=== PATIENT | female | born 1935 | race African-American/Black ===

== ENCOUNTER 2021-03-29 13:03 | Inpatient (IN) ==
[2021-03-29] MEDS ORDERED: SODIUM CHLORIDE 0.9% 500 ML IV STA (14:36)
[2021-03-29 16:00] LABS: Basophils % 0.2 % (0.0-0.8); Hematocrit 27.8 VOL% (35.7-47.0); Hemoglobin 9.5 GM/DL (12.0-16.0); Immature Granulocytes % 2.7 %; Immature Granulocytes Absolute 0.57 #; Lymphocytes % 4.6 % (21.3-54.2); Mean Corpuscular HGB Conc 34.2 GM/DL (32-36); Mean Corpuscular Volume 66.5 FL (87-102); Mean Platelet Volume 11.8 FL (9.6-12.0); Monocytes % 8.5 % (1.7-12.7); Platelet Count 212 T/CUMM (130-400); Red Blood Count 4.18 MC/CUMM (3.8-5.5); Red Cell Distribution Width 15.2 % (9.3-17.3)
[2021-03-29 16:20] LABS: Bilirubin,Total 0.8 MG/DL (0.20-1.00); Calcium 8.7 MG/DL (8.5-10.1); Osmolality,Calculated 318.7 MOS/KG (273-304); Potassium 5.1 MMOL/L (3.5-5.1); Total Protein 5.7 G/DL (6.4-8.2)
[2021-03-29] MEDS ORDERED: SODIUM CHLORIDE 0.9% 1,000 ML IV STA (16:24)
[2021-03-29] MEDS ORDERED: ASPIRIN CHEW 81 MG TABLET PO STA (16:24)
[2021-03-29] MEDS ORDERED: INSULIN REGULAR 100 UNIT/ML IV STA (16:25)
[2021-03-29 16:45] LABS: Burr Cells 1+; Lymphocytes 4 % (20-55); Metamyelocytes 1 %; Nucleated Red Blood Cells 1 (0-5); Schistocytes Slight; Segmented Neutrophils 87 % (50-85); Target Cells Few; Total Cells Counted 100
[2021-03-29 16:46] LABS: Anisocytosis Slight; Ovalocytes Slight; Platelet Estimate Normal
[2021-03-29 16:56] LABS: ABG Base Excess -7.3 MMOL/L (-2.5-2.5); ABG HCO3 15.6 MMOL/L (20-26); ABG Oxygen Saturation 94.1 % (95-100); ABG PCO2 23.2 MM HG (35-48); ABG PH 7.446 (7.35-7.45); ABG PO2 68.1 MM HG (80-95); ABG TCO2 16.3 MMOL/L (23-27)
[2021-03-29 17:53] LABS: Bacteria,Urine Occasional /HPF (Few); Bilirubin,Urine Negative (Negative); Blood, Urine Small mg/dL (Negative); Glucose,Urine (UA) >=500 mg/dL (Negative); Ketones,Urine Negative (Negative); Mucus,Urine Occasional /LPF (Occasional); Nitrite,Urine Negative (Negative); Protein,Urine 30 MG/DL; RBC,Urine 2 /HPF (0-4); Squamous Epithelial Cell,Urine Occasional /HPF (0-10); Urine Appearance CLEAR (Clear); Urine Color Yellow (Yellow); Urine Specific Gravity 1.017 (1.001-1.035); Urine Urobilinogen < 2.0 EU/DL (<2.0)
[2021-03-29] MEDS ORDERED: DOCUSATE SODIUM 100 MG CAPSULE PO PRN (19:05)
[2021-03-29] MEDS ORDERED: GLUCAGON 1 MG VIAL IM PRN (19:05)
[2021-03-29] MEDS ORDERED: MORPHINE 2 MG/1 ML SYRINGE IV PRN (19:05)
[2021-03-29] MEDS ORDERED: ONDANSETRON 4 MG/2 ML VIAL IV PRN (19:05)
[2021-03-29] MEDS ORDERED: hydrALAZINE 20 MG/1 ML VIAL IV PRN (19:05)
[2021-03-29] MEDS ORDERED: DEXTROSE 10% 25 GM/250 ML BAG IV PRN (19:11)
[2021-03-29 19:39] LABS: Thyroid Stimulating Hormone 5.07 uIU/ml (0.358-3.74)
[2021-03-29] MEDS: PIPERACILLIN/TAZOBACTAM 3,375 MG in SODIUM CHLORIDE 0.9% 100 ML IV SCH (20:25)
[2021-03-29] MEDS: SODIUM CHLORIDE 0.9% 1,000 ML IV SCH (20:25)
[2021-03-29] MEDS: ATORVASTATIN 40 MG TABLET PO SCH (21:30)
[2021-03-29] MEDS: ENOXAPARIN 30 MG/0.3 ML SYRINGE SUBCUT SCH (21:30)
[2021-03-29] MEDS: hydrALAZINE 25 MG TABLET PO SCH (21:30)
[2021-03-29] MEDS: carvediloL 3.125 MG TABLET PO SCH (21:30)
[2021-03-29] MEDS: INSULIN REGULAR 100 UNIT/ML SUBCUT SCH (21:30)
[2021-03-30] MEDS: ALBUTEROL 2.5 MG/3 ML NEB RESP TX SCH ×4 (00:50→19:35)
[2021-03-30 04:29] LABS: Alanine Aminotransferase 27 U/L (13-56); Albumin 1.8 G/DL (3.4-5.0); Alkaline Phosphatase 95 U/L (45-117); Aspartate Amino Transferase 36 U/L (0-37); Blood Urea Nitrogen 65 MG/DL (7-18); Calcium 8.7 MG/DL (8.5-10.1); Carbon Dioxide 17 MMOL/L (21-32); Estimated Glom Filtration Rate 32 ML/MIN; Glucose 186 MG/DL (74-106); HDL Cholesterol < 10 MG/DL (40-60); Osmolality,Calculated 311.7 MOS/KG (273-304); Potassium 4.6 MMOL/L (3.5-5.1); Sodium 145 MMOL/L (136-145); Total Protein 6.2 G/DL (6.4-8.2); Triglycerides 182 MG/DL (2-150); VLDL Cholesterol 36.4 MG/DL
[2021-03-30] MEDS: PIPERACILLIN/TAZOBACTAM 3,375 MG in SODIUM CHLORIDE 0.9% 100 ML IV SCH ×3 (04:33→21:24)
[2021-03-30] MEDS: SODIUM CHLORIDE 0.9% 1,000 ML IV SCH ×2 (04:33→12:45)
[2021-03-30 04:40] LABS: Basophils # 0.1 10*3/uL (0.0-0.2); Basophils % 0.3 % (0.0-0.8); Eosinophils % 0.1 % (0.00-10.9); Hematocrit 28.1 VOL% (35.7-47.0); Hemoglobin 9.6 GM/DL (12.0-16.0); Immature Granulocytes % 3.1 %; Lymphocytes # 0.9 10*3/uL (1.4-4.0); Mean Corpuscular HGB Conc 34.2 GM/DL (32-36); Mean Corpuscular Volume 65.8 FL (87-102); Monocytes % 6.8 % (1.7-12.7); NRBC # 0.03 10*3/uL; Neutrophils % 85.7 % (38.7-73.9); Platelet Count 207 T/CUMM (130-400); Red Blood Count 4.27 MC/CUMM (3.8-5.5); Red Cell Distribution Width 15.6 % (9.3-17.3); White Blood Count 22.3 T/CUMM (4-12)
[2021-03-30 05:13] LABS: Lymphocytes 3 % (20-55); Platelet Estimate Normal; Segmented Neutrophils 93 % (50-85); Total Cells Counted 100
[2021-03-30 05:14] LABS: Hypochromia Slight; Microcytosis 1+
[2021-03-30] MEDS: INSULIN REGULAR 100 UNIT/ML SUBCUT SCH ×4 (08:37→21:23)
[2021-03-30] MEDS: carvediloL 3.125 MG TABLET PO SCH ×2 (09:39→21:22)
[2021-03-30] MEDS: hydrALAZINE 25 MG TABLET PO SCH ×2 (09:39→21:22)
[2021-03-30] MEDS: ASPIRIN EC 81 MG TABLET PO SCH (09:39)
[2021-03-30] MEDS: FERROUS SULFATE 325 MG TABLET PO SCH (09:39)
[2021-03-30] MEDS: PANTOPRAZOLE 40 MG TABLET PO SCH (09:40)
[2021-03-30 11:09] LABS: CKMB % 9.4 %
[2021-03-30 11:10] LABS: High Sensitive Troponin I* 3887.5 ng/L (0-54)
[2021-03-30] MEDS: SODIUM BICARBONATE 650 MG TABLET PO SCH ×2 (12:56→21:22)
[2021-03-30] MEDS: ATORVASTATIN 40 MG TABLET PO SCH (21:22)
[2021-03-30] MEDS: ENOXAPARIN 30 MG/0.3 ML SYRINGE SUBCUT SCH (21:23)
[2021-03-31] MEDS: ALBUTEROL 2.5 MG/3 ML NEB RESP TX SCH ×4 (00:35→20:45)
[2021-03-31 04:48] LABS: Basophils # 0.1 10*3/uL (0.0-0.2); Basophils % 0.2 % (0.0-0.8); Eosinophils % 0.1 % (0.00-10.9); Hematocrit 23.8 VOL% (35.7-47.0); Hemoglobin 8.1 GM/DL (12.0-16.0); Immature Granulocytes % 4.1 %; Immature Granulocytes Absolute 0.97 #; Lymphocytes # 1.8 10*3/uL (1.4-4.0); Lymphocytes % 7.7 % (21.3-54.2); Mean Corpuscular Volume 66.1 FL (87-102); Mean Platelet Volume 12.2 FL (9.6-12.0); Monocytes % 6.9 % (1.7-12.7); NRBC # 0.03 10*3/uL; Platelet Count 237 T/CUMM (130-400); Red Cell Distribution Width 15.5 % (9.3-17.3); White Blood Count 23.9 T/CUMM (4-12)
[2021-03-31 05:17] LABS: CKMB % 3.5 %; High Sensitive Troponin I* 3139.5 ng/L (0-54)
[2021-03-31 05:21] LABS: Calcium 8.4 MG/DL (8.5-10.1); Osmolality,Calculated 303.3 MOS/KG (273-304); Potassium 5.9 MMOL/L (3.5-5.1)
[2021-03-31 05:47] LABS: Hypochromia 2+; Microcytosis 1+; Platelet Estimate Normal; Target Cells 1+
[2021-03-31] MEDS: PIPERACILLIN/TAZOBACTAM 3,375 MG in SODIUM CHLORIDE 0.9% 100 ML IV SCH ×3 (06:23→22:15)
[2021-03-31] MEDS: SODIUM CHLORIDE 0.9% 1,000 ML IV SCH (07:16)
[2021-03-31] MEDS: ASPIRIN EC 81 MG TABLET PO SCH (09:31)
[2021-03-31] MEDS: hydrALAZINE 25 MG TABLET PO SCH ×2 (09:31→22:15)
[2021-03-31] MEDS: INSULIN REGULAR 100 UNIT/ML SUBCUT SCH ×4 (09:31→22:16)
[2021-03-31] MEDS: PANTOPRAZOLE 40 MG TABLET PO SCH (09:31)
[2021-03-31] MEDS: SODIUM BICARBONATE 650 MG TABLET PO SCH ×2 (09:31→22:14)
[2021-03-31] MEDS: FERROUS SULFATE 325 MG TABLET PO SCH (09:31)
[2021-03-31] MEDS: carvediloL 3.125 MG TABLET PO SCH ×2 (09:31→22:14)
[2021-03-31] MEDS: SODIUM ZIRCONIUM CYCLOSILICATE 10 GM PACK PO SCH ×2 (09:31→15:48)
[2021-03-31] MEDS ORDERED: LEVOFLOXACIN INJ 500 MG/100 ML PREMIX IV ONE (15:00)
[2021-03-31] MEDS: ATORVASTATIN 40 MG TABLET PO SCH (22:14)
[2021-03-31] MEDS: ACETAMINOPHEN 325 MG TABLET PO PRN (22:14)
[2021-03-31] MEDS: ENOXAPARIN 30 MG/0.3 ML SYRINGE SUBCUT SCH (22:15)
[2021-03-31] MEDS: HYDROCORTISONE 25 MG SUPP RECTAL SCH (22:15)
[2021-03-31] MEDS: DOCUSATE SODIUM 100 MG CAPSULE PO SCH (22:15)
[2021-03-31] MEDS: POLYETHYLENE GLYCOL POWDER 17 GM PACK PO SCH (22:17)
[2021-04-01] MEDS: ALBUTEROL 2.5 MG/3 ML NEB RESP TX SCH ×4 (00:39→20:15)
[2021-04-01 04:57] LABS: Basophils # 0.1 10*3/uL (0.0-0.2); Basophils % 0.2 % (0.0-0.8); Eosinophils # 0.1 10*3/uL (0.0-0.87); Eosinophils % 0.3 % (0.00-10.9); Hematocrit 21.7 VOL% (35.7-47.0); Hemoglobin 7.3 GM/DL (12.0-16.0); Immature Granulocytes Absolute 1.09 #; Lymphocytes # 2.1 10*3/uL (1.4-4.0); Lymphocytes % 9.8 % (21.3-54.2); Mean Corpuscular HGB Conc 33.6 GM/DL (32-36); Mean Corpuscular Volume 66.6 FL (87-102); Mean Platelet Volume 12.2 FL (9.6-12.0); NRBC # 0.04 10*3/uL; Neutrophils % 77.7 % (38.7-73.9); Platelet Count 250 T/CUMM (130-400); Red Blood Count 3.26 MC/CUMM (3.8-5.5); Red Cell Distribution Width 15.1 % (9.3-17.3); White Blood Count 21.6 T/CUMM (4-12)
[2021-04-01] MEDS: PIPERACILLIN/TAZOBACTAM 3,375 MG in SODIUM CHLORIDE 0.9% 100 ML IV SCH ×3 (05:03→21:29)
[2021-04-01 05:13] LABS: Calcium 8.2 MG/DL (8.5-10.1); Osmolality,Calculated 305.8 MOS/KG (273-304); Potassium 3.4 MMOL/L (3.5-5.1)
[2021-04-01 05:26] LABS: Hypochromia 2+
[2021-04-01 05:27] LABS: Microcytosis 1+; Target Cells 1+
[2021-04-01 05:28] LABS: Ovalocytes Few; Platelet Estimate Normal
[2021-04-01] MEDS: hydrALAZINE 25 MG TABLET PO SCH ×2 (08:49→21:29)
[2021-04-01] MEDS: carvediloL 3.125 MG TABLET PO SCH ×2 (08:49→21:30)
[2021-04-01] MEDS: LINACLOTIDE 145 MCG CAPSULE PO SCH (08:49)
[2021-04-01] MEDS: ACETAMINOPHEN 325 MG TABLET PO PRN (08:49)
[2021-04-01] MEDS: SODIUM BICARBONATE 650 MG TABLET PO SCH ×2 (08:49→21:29)
[2021-04-01] MEDS: POLYETHYLENE GLYCOL POWDER 17 GM PACK PO SCH ×2 (08:50→21:31)
[2021-04-01] MEDS: DOCUSATE SODIUM 100 MG CAPSULE PO SCH ×2 (08:50→21:30)
[2021-04-01] MEDS: HYDROCORTISONE 25 MG SUPP RECTAL SCH ×2 (08:50→21:30)
[2021-04-01] MEDS: ASPIRIN EC 81 MG TABLET PO SCH (08:50)
[2021-04-01] MEDS: PANTOPRAZOLE 40 MG TABLET PO SCH (08:50)
[2021-04-01] MEDS: INSULIN REGULAR 100 UNIT/ML SUBCUT SCH ×4 (09:38→21:30)
[2021-04-01] MEDS: SODIUM CHLORIDE 0.9% 1,000 ML IV SCH ×2 (13:22→21:21)
[2021-04-01] MEDS: LEVOFLOXACIN INJ 250 MG/50 ML PREMIX IV SCH (17:32)
[2021-04-01] MEDS: ENOXAPARIN 30 MG/0.3 ML SYRINGE SUBCUT SCH (21:29)
[2021-04-01] MEDS: ATORVASTATIN 40 MG TABLET PO SCH (21:30)
[2021-04-02] MEDS: ALBUTEROL 2.5 MG/3 ML NEB RESP TX SCH ×4 (00:44→19:22)
[2021-04-02] MEDS: PIPERACILLIN/TAZOBACTAM 3,375 MG in SODIUM CHLORIDE 0.9% 100 ML IV SCH ×3 (04:08→21:09)
[2021-04-02 05:44] LABS: Basophils % 0.2 % (0.0-0.8); Eosinophils # 0.1 10*3/uL (0.0-0.87); Eosinophils % 0.6 % (0.00-10.9); Hematocrit 22.2 VOL% (35.7-47.0); Hemoglobin 7.4 GM/DL (12.0-16.0); Immature Granulocytes Absolute 0.92 #; Lymphocytes # 2.4 10*3/uL (1.4-4.0); Lymphocytes % 12.7 % (21.3-54.2); Mean Corpuscular HGB Conc 33.3 GM/DL (32-36); Mean Corpuscular Volume 66.7 FL (87-102); Mean Platelet Volume 12.4 FL (9.6-12.0); NRBC # 0.04 10*3/uL; Neutrophils % 74.5 % (38.7-73.9); Platelet Count 266 T/CUMM (130-400); Red Blood Count 3.33 MC/CUMM (3.8-5.5); Red Cell Distribution Width 15.6 % (9.3-17.3); White Blood Count 18.5 T/CUMM (4-12)
[2021-04-02 06:04] LABS: Osmolality,Calculated 294.6 MOS/KG (273-304); Potassium 3.1 MMOL/L (3.5-5.1)
[2021-04-02 06:08] LABS: Eosinophils 1 % (0-10); Hypochromia 1+; Lymphocytes 7 % (20-55); Microcytosis 1+; Platelet Estimate Adequate; Segmented Neutrophils 86 % (50-85); Total Cells Counted 100
[2021-04-02] MEDS: SODIUM BICARBONATE 650 MG TABLET PO SCH ×2 (08:48→21:10)
[2021-04-02] MEDS: hydrALAZINE 25 MG TABLET PO SCH ×2 (08:48→21:10)
[2021-04-02] MEDS: HYDROCORTISONE 25 MG SUPP RECTAL SCH ×2 (08:48→21:10)
[2021-04-02] MEDS: ASPIRIN EC 81 MG TABLET PO SCH (08:48)
[2021-04-02] MEDS: DOCUSATE SODIUM 100 MG CAPSULE PO SCH ×2 (08:48→21:10)
[2021-04-02] MEDS: PANTOPRAZOLE 40 MG TABLET PO SCH (08:48)
[2021-04-02] MEDS: LINACLOTIDE 145 MCG CAPSULE PO SCH (08:48)
[2021-04-02] MEDS: POLYETHYLENE GLYCOL POWDER 17 GM PACK PO SCH ×2 (08:48→21:11)
[2021-04-02] MEDS: carvediloL 3.125 MG TABLET PO SCH ×2 (08:48→21:10)
[2021-04-02] MEDS: INSULIN REGULAR 100 UNIT/ML SUBCUT SCH ×4 (08:58→21:09)
[2021-04-02] MEDS: SODIUM CHLORIDE 0.9% 1,000 ML IV SCH ×2 (09:34→22:29)
[2021-04-02] MEDS: LEVOFLOXACIN INJ 250 MG/50 ML PREMIX IV SCH (16:13)
[2021-04-02] MEDS: ENOXAPARIN 30 MG/0.3 ML SYRINGE SUBCUT SCH (21:09)
[2021-04-02] MEDS: ATORVASTATIN 40 MG TABLET PO SCH (21:10)
[2021-04-03] MEDS: PIPERACILLIN/TAZOBACTAM 3,375 MG in SODIUM CHLORIDE 0.9% 100 ML IV SCH ×2 (04:06→11:56)
[2021-04-03 04:41] LABS: Basophils % 0.2 % (0.0-0.8); Eosinophils # 0.1 10*3/uL (0.0-0.87); Eosinophils % 0.8 % (0.00-10.9); Hematocrit 23.5 VOL% (35.7-47.0); Hemoglobin 7.9 GM/DL (12.0-16.0); Immature Granulocytes % 4.6 %; Immature Granulocytes Absolute 0.74 #; Lymphocytes # 2.3 10*3/uL (1.4-4.0); Lymphocytes % 14.4 % (21.3-54.2); Mean Corpuscular HGB Conc 33.6 GM/DL (32-36); Mean Corpuscular Volume 67.1 FL (87-102); Mean Platelet Volume 12.3 FL (9.6-12.0); Monocytes % 8.8 % (1.7-12.7); NRBC # 0.04 10*3/uL; Neutrophils % 71.2 % (38.7-73.9); Platelet Count 369 T/CUMM (130-400); Red Cell Distribution Width 15.5 % (9.3-17.3)
[2021-04-03 04:58] LABS: Calcium 8.4 MG/DL (8.5-10.1); Osmolality,Calculated 290.1 MOS/KG (273-304); Potassium 3.4 MMOL/L (3.5-5.1)
[2021-04-03 05:10] LABS: Band Neutrophils 1 % (0-10); Eosinophils 1 % (0-10); Hypochromia 2+; Lymphocytes 10 % (20-55); Myelocytes 1 %; Ovalocytes Few; Segmented Neutrophils 78 % (50-85); Target Cells 1+; Total Cells Counted 100
[2021-04-03 05:11] LABS: Microcytosis 1+; Platelet Estimate Normal
[2021-04-03] MEDS: ALBUTEROL 2.5 MG/3 ML NEB RESP TX SCH ×2 (07:02→08:19)
[2021-04-03] MEDS ORDERED: LOSARTAN 50 MG TABLET PO SCH (09:00)
[2021-04-03] MEDS ORDERED: amLODIPine 10 MG TABLET PO SCH (09:00)
[2021-04-03] MEDS: DOCUSATE SODIUM 100 MG CAPSULE PO SCH (09:15)
[2021-04-03] MEDS: ASPIRIN EC 81 MG TABLET PO SCH (09:16)
[2021-04-03] MEDS: POTASSIUM CHLORIDE 20 MEQ TABLET PO PRN ×2 (09:16→12:37)
[2021-04-03] MEDS: PANTOPRAZOLE 40 MG TABLET PO SCH (09:16)
[2021-04-03] MEDS: carvediloL 3.125 MG TABLET PO SCH (09:16)
[2021-04-03] MEDS: SODIUM BICARBONATE 650 MG TABLET PO SCH (09:16)
[2021-04-03] MEDS: hydrALAZINE 25 MG TABLET PO SCH (09:16)
[2021-04-03] MEDS: LINACLOTIDE 145 MCG CAPSULE PO SCH (09:17)
[2021-04-03] MEDS: HYDROCORTISONE 25 MG SUPP RECTAL SCH (09:17)
[2021-04-03] MEDS: INSULIN REGULAR 100 UNIT/ML SUBCUT SCH ×2 (09:19→12:37)
[2021-04-03] MEDS: POLYETHYLENE GLYCOL POWDER 17 GM PACK PO SCH (09:20)
[2021-04-03 10:13] VITALS: BP 169/73
[2021-04-03] MEDS: SODIUM CHLORIDE 0.9% 1,000 ML IV SCH (10:28)
== END 2021-04-03 13:11 | disposition home or self-care (01) | DRG 682 ==
LOC: N.ED 13:03 → SUATTDRO 19:04 → N.EDINP 19:04 → N.TELEN 03-30 17:51
PROVIDERS: ADMIT Hospitalist; ATTEND Emergency Medicine